=== PATIENT | female | born 1985 | race Two or more races ===

== ENCOUNTER 2021-07-05 13:43 | Emergency (ER) | payer BC, OTHER ==
[2021-07-05 13:58] VITALS: BP 129/84; PULSE 82; TEMP 98.3; BMI 28.7
[2021-07-05] MEDS ORDERED: ACETAMINOPHEN 500 MG TABLET (FP) PO ONE (14:18)
[2021-07-05] MEDS ORDERED: DIPHTH,PERTUSS(ACELL),TET 0.5 ML DISP.SYRIN IM ONE ×2 (14:18→14:23)
[2021-07-05] MEDS ORDERED: ACETAMINOPHEN 500 MG TABLET (FP) ONE (14:23)
== END 2021-07-05 15:13 | disposition home or self-care (01) ==
LOC: JERFT 13:43 → JER 13:43 → JERFT 15:13
PROC: 3E0234Z Introduction of Serum, Toxoid and Vaccine into Muscle, Percutaneous Approach (ICD-10-PCS; principal; 2021-07-05)
DX: S61.011A Laceration without foreign body of right thumb without damage to nail, initial encounter (principal); W26.8XXA Contact with other sharp object(s), not elsewhere classified, initial encounter
CPT/HCPCS: 90715; 99284-25